=== PATIENT | female | born 1975 | race Caucasian/White ===

== ENCOUNTER 2016-05-22 06:04 | Day surgery (SDC) | payer BC ==
[2016-05-19 15:09] LABS: BASOPHILS 0.3 % (0.0-2.0); EOSINOPHILS 1.7 % (0-7); HEMATOCRIT 40.5 % (36.0-48.0); HEMOGLOBIN 13.7 g/dL (12-16); IMMATURE GRANULOCYTES 0.1 % (0-5); LYMPHOCYTES 29.8 % (15-50); MCH 31.1 pg (26.0-34.0); MCHC 33.8 g/dL (31.0-37.0); MEAN PLATELET VOLUME 10.1 fL (7.4-10.4); NEUTROPHILS 62.1 % (40-80); PLATELET COUNT 216 10x3/uL (130-400); RDW 12.2 % (11.5-14.5); WBC 7.7 10x3/uL (4.8-10.8)
[~2016-05-22] VITALS: Ht 165.1 cm; Wt 79.4 kg
[~2016-05-22 06:04] MED LIST: ZOLOFT100 MG PO
[2016-05-22 06:50] VITALS: BP 105/75; Ht 165.1 cm; Wt 79.4 kg
[2016-05-22 07:12] LABS: HCG URINE NEGATIVE (NEGATIVE)
--- NOTE | 2016-05-26 07:53 | OP ---
PATIENT NAME: MAME US MEDICAL RECORD: [id number] :77 LOCATION:D.OPS ADMISSION DATE: SURGEON: KEYSHA CHOW MD DATE OF OPERATION: 05/22/2016 PREOPERATIVE DIAGNOSES: 1. Abnormal uterine bleeding, menorrhagia. 2. History of prior NovaSure endometrial ablation. POSTOPERATIVE DIAGNOSES: 1. Abnormal uterine bleeding, menorrhagia. 2. History of prior NovaSure endometrial ablation. 3. Internal cervical os stenosis. SURGEON: Keysha Chow MD ANESTHESIA: Laryngeal mask anesthesia with Roshan Quinn CRNA. PROCEDURE: Hysteroscopy with dilation and curettage. FINDINGS: Stenosis of the internal cervical os noted, relieved with gentle serial dilatation. 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 Tubal ostia were not visualized due to the severe adhesions. Good uterine descensus was noted. A large cervical ectropion noted as well. DESCRIPTION OF PROCEDURE: After informed consent was given, the patient was taken to the operating room where laryngeal mask anesthesia was placed and found to be adequate. She was placed in a dorsal lithotomy position in [facility]. She was prepped and draped sterilely including a vaginal prep. A catheter was placed into the bladder and bladder drained with approximately 80 cc of clear urine return. A bivalve speculum was then placed into the vagina and her cervix visualized and grasped anteriorly with a single-tooth tenaculum. The attempt was then made to sound the cervix. A sound could not be placed due to stenosis of the internal cervical os. Therefore, we gently used a very tiny uterine sound, and progressively and serially dilated the cervix until reaching the desired dilatation of 10 mm. Once this was accomplished, the uterus was able to be sounded across and was sounded to 8.5 cm. The hysteroscope was then prepared and placed into the endometrial cavity with findings as listed above. Some targeted biopsies were taken of the tissue and the hysteroscope was removed. A sharp and suction curettage was then employed until a gritty texture was noted circumferentially. All specimens sent to the pathologist for further evaluation. At completion of the procedure, the single-tooth tenaculum was removed with silver nitrate used at the tenaculum sites with excellent hemostasis noted. The bivalve speculum was removed. The patient was returned to a supine position, awakened and taken into the recovery room in stable condition. The patient tolerated the procedure well. Sponge, lap and instrument counts were reported correct times 2. ESTIMATED BLOOD LOSS: Less than 50 cc. INTRAVENOUS FLUIDS: 900 cc of crystalloid. URINE OUTPUT: 80 cc. OPERATIVE REPORT [id number] MAME US SPECIMENS: 1. Biopsy of endometrium. 2. Sharp and suction endometrial curettings. COMPLICATIONS: None. TRANSINT:[id number] Voice Confirmation ID: [id number] DOCUMENT ID: [id number] KEYSHA CHOW MD at 0753 CC: [id number] DICTATION DATE: 05/22/16 1342 CONVEYOR TECHNICIAN: 05/22/16 1415 [facility] 05/22/[address] [address]
== END 2016-05-22 12:15 | disposition home or self-care (01) ==
LOC: D.OPS 06:04 → D.PAN 08:30 → D.OPS 12:15
PROVIDERS: Specialist
DX: N93.9 Abnormal uterine and vaginal bleeding, unspecified (principal); R93.5 Abnormal findings on diagnostic imaging of other abdominal regions, including retroperitoneum

== ENCOUNTER 2016-07-03 05:56 | Day surgery (SDC) | payer BC ==
[2016-06-29 15:29] LABS: BASOPHILS 0.6 % (0.0-2.0); EOSINOPHILS 3.3 % (0-7); HEMATOCRIT 38.1 % (36.0-48.0); HEMOGLOBIN 12.8 g/dL (12-16); IMMATURE GRANULOCYTES 0.1 % (0-5); LYMPHOCYTES 35.6 % (15-50); MCHC 33.6 g/dL (31.0-37.0); MCV 92.3 fL (80.0-100.0); MEAN PLATELET VOLUME 10.1 fL (7.4-10.4); NEUTROPHILS 54.4 % (40-80); PLATELET COUNT 215 10x3/uL (130-400); RBC 4.13 10x6/uL (4.00-5.40); RDW 12.5 % (11.5-14.5); WBC 8.5 10x3/uL (4.8-10.8)
[2016-06-29 15:43] LABS: CALC OSMOLALITY 282 mosm/kg (275-300); CALCIUM 9.2 mg/dL (8.5-10.1); CARBON DIOXIDE 28.1 mmol/L (21.0-32.0); CHLORIDE - SERUM 104 mmol/L (98-107); CREATININE - SERUM 0.6 mg/dL (0.6-1.3); GLUCOSE 109 mg/dL (74-106); POTASSIUM - SERUM 3.9 mmol/L (3.5-5.1); SODIUM 142 mmol/L (136-145); UREA NITROGEN 11 mg/dL (7-18); eGFR NON AFRICAN AMERICAN > 90 mL/min (90-120)
[~2016-07-03] VITALS: Ht 165.1 cm; Wt 77.3 kg
[2016-07-03] VITALS (13 sets, daily range): BP systolic 103–133; BP diastolic 65–77; Ht 165.1 cm; Wt 77.3 kg
--- NOTE | 2016-07-03 06:24 | NUR ---
0620 PT STATES NO CHANGES IN HEALTH HISTORY ASSESSMENT SINCE INTERVIEWED ON 06/29/16. Heath WHITE R.N.
[2016-07-03 07:27] LABS: HCG URINE NEGATIVE (NEGATIVE)
--- NOTE | 2016-07-03 12:02 | NUR ---
REMAINS IN BED WITH 2 SIDERAILS UP . PERIODICLY NAPPING. FAMILY AT BEDSIDE.
--- NOTE | 2016-07-03 14:10 | NUR ---
pt awake and sitting up in the bed, with her mother at bedside. pt requests hot tea, provided for her mother to assist her with, lemon saxman soda also reqeusted and served. sr up x 2, call light and phone within reach. corrections counselor button within reach. pt denies other needs at this time. pt requests for O2 to be discontinued. O2 sat noted to be 97% on 2Lnc. o2 removed, will continue to monitor o2 sats.
--- NOTE | 2016-07-03 15:13 | NUR ---
FAMILY REMAINS AT BEDSIDE. PT STATES SHE ONLY HITS PAIN PUMP WHEN NEEDED. INCENTIVE SPIROMETER AND ICE PACK TO ABD. NO VAG BLEEDING NOTED. PACKING INPLACE. MACKEY PATENT TO CLOSED. DRAINAGE SYSTEM.
--- NOTE | 2016-07-03 17:27 | NUR ---
PT COMPLAINING OF MILD NAUSEA. NEW ORDER RECEIVED.
--- NOTE | 2016-07-03 17:45 | NUR ---
C/O SWELLING TO HANDS. IV LR TO KEEP OPEN FOR JEWEL GRINDER. NAUSEA IMPROVED.
--- NOTE | 2016-07-03 17:59 | NUR ---
DEMONSTRATED INCENTIVE SPIROMETER. PT REPEATED INSTRUCTIONS. CLEAR FLUIDS AT BEDSIDE. PT HUNGRY NOW THAT NAUSEA HAS SUBSIDED.
--- NOTE | 2016-07-03 19:25 | NUR ---
PATIENT TRANSFERRED BY BED TO ROOM 1214 FROM . AWAKE AND ALERT. INTRODUCED SELF. V/S TAKEN. ASSESSMENT DONE. STATUS POST LAVH TODAY. 3 ABD LAP INCISIONS WITH BAND-AIDS. NO BLEEDING NOTED. MACKEY CATH TO DRAINAGE BAG. IVF--LR TO R HAND. IV SITE OK. ON DEMEROL ELECTRONIC INDUSTRIAL CONTROLS MECHANIC FOR PAIN MANAGEMENT. REFILLED ICE PACK TO ABD. SCD's TO BOTH LOWER EXTREMITIES TO PREVENT DVT. ORIENTED TO ROOM AND BED CONTROLS.
--- NOTE | 2016-07-03 20:10 | NUR ---
TURNED OFF LIGHTS IN THE ROOM PER PT's REQUEST.
--- NOTE | 2016-07-03 23:44 | NUR ---
V/S RECHECKED. O2 SAT 88% ON ROOM AIR. STARTED ON O2 @ 2L/NC. O2 SAT UP TO 95%
--- NOTE | 2016-07-04 01:19 | NUR ---
DEMEROL DISPATCHER REFINERY SYRINGE CHANGED.
--- NOTE | 2016-07-04 03:20 | NUR ---
EYES CLOSED. LEFT UNDISTURBED.
--- NOTE | 2016-07-04 06:16 | NUR ---
FLOOR AND WALL APPLIER LIQUID HERE TO DRAW AM LAB. SLEPT FAIRLY WELL DURING THE NIGHT. CONTINUING PLAN OF CARE. ANTICIPATES DISCHARGE TODAY.
[2016-07-04 06:38] LABS: BASOPHILS 0.1 % (0.0-2.0); EOSINOPHILS 0.5 % (0-7); HEMATOCRIT 33.4 % (36.0-48.0); IMMATURE GRANULOCYTES 0.3 % (0-5); LYMPHOCYTES 11.3 % (15-50); MCH 30.1 pg (26.0-34.0); MCHC 32.9 g/dL (31.0-37.0); MCV 91.5 fL (80.0-100.0); MONOCYTES 7.3 % (2-11); NEUTROPHILS 80.5 % (40-80); RBC 3.65 10x6/uL (4.00-5.40); RDW 12.1 % (11.5-14.5); WBC 11.4 10x3/uL (4.8-10.8)
[2016-07-04 06:44] LABS: PLATELET COUNT 159 10x3/uL (130-400)
[2016-07-04 06:57] LABS: CALC OSMOLALITY 272 mosm/kg (275-300); CALCIUM 7.8 mg/dL (8.5-10.1); CARBON DIOXIDE 29.3 mmol/L (21.0-32.0); CHLORIDE - SERUM 102 mmol/L (98-107); CREATININE - SERUM 0.6 mg/dL (0.6-1.3); GLUCOSE 94 mg/dL (74-106); POTASSIUM - SERUM 3.6 mmol/L (3.5-5.1); SODIUM 137 mmol/L (136-145); UREA NITROGEN 9 mg/dL (7-18); eGFR NON AFRICAN AMERICAN > 90 mL/min (90-120)
[2016-07-04 07:15] VITALS: BP 91/60
--- NOTE | 2016-07-04 07:15 | NUR ---
PT IS RECEIVED LYING IN BED. SHE IS S/P VAG HYST. SHE OFFERS NO COMPLAINTS THIS AM. HER MOTHER IS AT BEDSIDE. SHE STATES THAT SHE WOULD LIKE ANOTHER ICE PACK. SEEMS TO HELP HER. IV IS PATENT R HAND. SHE HAS LR INFUSING AT 50 CC/HR AND A DEMEROL JOINT FINISHER 10 MG Q 10. SHE HAS MACKEY INTACT WITH LYNNETTE COLORED URINE. SCD'S INTACT. GEN- AWAKE AND ALERT. LUNGS- CLEAR. HEART- RRR. ABD- SOFT WITH TENDERNESS. 2 LAP INCISIONS COVER WITH BANDAIDS. BED IS LOW, SIDE RAILS UP X 2 AND CALL LIGHT IN REACH.
[2016-07-04] MEDS ORDERED: IBUPROFEN600 MG PO (07:34)
[2016-07-04] MEDS ORDERED: PERCOCET 5-3251 TAB PO (07:35)
--- NOTE | 2016-07-04 08:44 | NUR ---
PT IS LYING IN BED RESTING. IV WAS SALINE LOCKED. MACKEY WAS REMOVED. 300 CC LYNNETTE COLORED URINE. PT OFFERS NO COMPLAINTS. ENCOURAGED INCENTIVE ESTELA. INSTRUCTED PT TO CALL ME WHEN SHE IS READY TO GET UP.
--- NOTE | 2016-07-04 08:53 | NUR ---
PT C/O PAIN IN NECK BEING A 7. SHE HAD NO PAIN MED ORDERED. I CALLED AUDREY CORNELIUS WITH DR BUTTS AND SHE ORDERED HYDROCODONE/ACET 10/325 FOR PT SINCE THIS IS WHAT PT STATES THAT SHE TAKES AT HOME FOR HER NECK PAIN.
--- NOTE | 2016-07-04 09:20 | NUR ---
PT ASSISTED UP TO BATHROOM. TOLERATED WELL. SHE WAS UNABLE TO VOID. C/O OF A LITTLE DIZZINESS WHEN GETTING BACK IN BED.
--- NOTE | 2016-07-04 09:53 | NUR ---
This RN assisting with care. Pt was medicated for pain -see emar. Jimenez ordoñezs provide and encouraged. Pt denies needs at this time.
--- NOTE | 2016-07-04 10:29 | NUR ---
PT IS RESTING IN BED. STATES HER PAIN IS ABOUT A 4 NOW. SHE OFFERS NO COMPLAINTS. BED IS LOW, CALL LIGHT IN REACH AND SIDE RAILS UP X 2.
--- NOTE | 2016-07-04 11:43 | NUR ---
PT IS RESTING IN BED. SHE STATES HER PAIN IS OK NOW.
--- NOTE | 2016-07-04 12:45 | NUR ---
PT IS UP TO TAKE A SHOWER. TOLERATED VERY WELL. MOTHER AT BEDSIDE. LINENS CHANGED. PT DRESSED IN HER CLOTHES AND NOW IS AMBULATING IN HALLWAY.
--- NOTE | 2016-07-04 13:45 | NUR ---
SALINE LOCK D'CD R HAND. TIP INTACT. BANDAID APPLIED.
--- NOTE | 2016-07-04 14:19 | NUR ---
PTS DISCHARGE INSTRUCTIONS WERE DISCUSSED WITH HER AND HANDOUTS GIVEN. PRESCRIPTIONS GIVEN ALSO. PT WAS TAKEN TO THE FRONT DOOR BY WHEELCHAIR. HER MOM IS DRIVING HER HOME.
--- NOTE | 2016-07-07 19:19 | OP ---
PATIENT NAME: MAME US MEDICAL RECORD: [id number] :77 LOCATION:D.OPS ADMISSION DATE: SURGEON: NAIMA CHOW MD DATE OF OPERATION: 07/03/2016 PREOPERATIVE DIAGNOSES: 1. Abnormal uterine bleeding, menorrhagia, and dysmenorrhea. 2. Failed endometrial ablation. POSTOPERATIVE DIAGNOSES: 1. Abnormal uterine bleeding, menorrhagia, and dysmenorrhea. 2. Failed endometrial ablation. SURGEON: Naima Chow MD SECURITIES ADVISER SURGEON: Christophe Castillo MD (JJ) ANESTHESIA: General endotracheal anesthesia with Suzan Haskins CRNA. PROCEDURES: 1. Laparoscopic assisted vaginal hysterectomy with ovarian preservation. 2. Bilateral distal salpingectomy. FINDINGS: Due to current lap band in place, prior history of cholecystectomy, and keloid scar formation, Dr. Castillo aided at start of the case. Fortunately, very little adhesive disease was noted. Normal appearing uterus, ovaries, and fallopian tubes bilaterally. DESCRIPTION OF THE PROCEDURE: After informed consent was given, the patient was taken to the operating room where general endotracheal anesthesia was placed and found to be adequate. She was placed in a dorsal lithotomy position in [facility]. She was prepped and draped sterilely including a vaginal prep. A Melo catheter was placed in the bladder and bladder was drained with approximately 20 cc of clear urine return. A bivalve speculum was then placed in the vagina, the cervix visualized and grasped anteriorly with a single-tooth tenaculum. A Pelosi uterine manipulator was then placed with ease and the bivalve speculum removed. The patient was placed into a ski position, gloves were changed, and infraumbilical incision was then made by Dr. Castillo and a 5-mm Optiview port was placed under direct visualization. The abdomen was insufflated with approximately 2 liters of CO2 gas. Please see his dictation for details, but very little adhesive disease was noted and the lap band was also able to be visualized. The patient was placed into Trendelenburg, 2 additional 5-mm ports were placed in the right and left lower quadrant under direct visualization. Dr. Castillo then exited the procedure and we continued, the right round ligament was grasped with an atraumatic grasper, held gently on traction, the right round ligament was then cauterized with the Gyrus and transected with the Harmonic scalpel. We then opened the anterior leaf of the broad ligament, heading laterally to medially creating a bladder flap. The ovary on the right side was then gently lifted. The right ureter was identified and noted to be peristalsing normally. The right fallopian tube and right ovarian ligament were then cauterized with the Gyrus and transected with the Harmonic scalpel. We then continued cauterizing and transecting the parametrial tissue until reaching the region of the uterine vessels, The uterine vessels were then cauterized with the Gyrus and transected with the Harmonic scalpel. Excellent hemostasis was noted. Attention was then turned to the opposite side. OPERATIVE REPORT [id number] MAME US The left round ligament was grasped with an atraumatic grasper and held on traction as the Gyrus was used to cauterize and the Harmonic scalpel to transect the left round ligament. The anterior leaf of the broad ligament was then opened and met in the middle heading laterally to medially, opening this and creating a bladder flap. Excellent hemostasis was again noted. The left ovary was lifted, the left ureter was identified and noted to be peristalsing normally. The left fallopian tube and left utero-ovarian ligaments were then cauterized with the Gyrus and transected with the Harmonic scalpel. Hemostasis was assured, we then continued cauterizing and transecting the parametrial tissue until reaching the region of the uterine vessels. The uterine vessels on the left side then were cauterized and transected as well. A dusky appearance to the uterus was noted. All pedicles were again observed and noted to be hemostatic. We then held the left fallopian tube on traction, and cauterized and transected the mesosalpinx to excise the left fallopian tube and fimbria and repeated this on the right. The fallopian tubes were then placed into the cul-de-sac for removal once we began the vaginal portion of the procedure, all instruments were removed. The abdomen was desufflated and the patient was flattened. We then placed the patient into a steep lithotomy position. The Pelosi uterine manipulator was removed. A weighted speculum was placed into the vagina posteriorly, a Luz Elena anteriorly and lateral sidewall retractors were utilized as well. The single-tooth tenaculum was removed and replaced with a thyroid tenacula anteriorly and another one was placed posteriorly. We then held the cervix gently on traction as an incision was made circumferentially of the vaginal mucosa with the Bovie cautery. The posterior aspect of the vaginal mucosa was grasped and the posterior cul-de-sac was entered with the Iverson scissors. The fallopian tubes were removed from the cul-de-sac and passed off the field as specimen. The long weighted speculum was placed into the posterior cul-de-sac. The right and left uterosacral ligaments were then clamped with curved Nicolasa clamps, transected with Iverson scissors, and suture ligated with 0 Vicryl stick ties. These were held on hemostats. We then opened the anterior cul-de-sac and the Luz Elena was placed through this to retract the bladder and protect it. We then continued clamping, transecting and suture ligating the cardinal ligaments in 2 additional pedicles on either side with clamping with Nicolasa clamp, transecting with Iverson scissors, and suture ligating with 0 Vicryl stick ties. The uterus and cervix were then removed and passed off the field as specimen. All of the pedicles were observed and noted to be hemostatic. The long weighted speculum was removed and replaced with the short weighted speculum. The anterior and posterior aspects of the peritoneum were then grasped with Allis clamps and the peritoneum was closed in a pursestring fashion including the uterosacral ligaments in the closure. The uterosacral ligaments were then tied in the midline to aid in vault suspension and the vaginal cuff was then closed with 0 Vicryl in a running locked fashion. Excellent hemostasis was noted. The vagina was irrigated and noted to be hemostatic. The vagina was then packed with a Premarin-soaked Kerlix sponge. Clear urine was noted at completion of this portion of the procedure. The patient was again placed into a ski position, gloves were once again changed. The abdomen was reinsufflated and the patient was placed into a Trendelenburg. The ureters were again identified and were noted to be peristalsing normally bilaterally. The pelvis was irrigated profusely and noted to be hemostatic. Scooby dust was sprayed onto the cuff and peritoneum to aid additionally in hemostasis. The abdomen was desufflated. The right and left lower quadrant ports were removed under direct visualization. Hemostasis was assured and finally the umbilical port was removed. All 3 ports were closed with 3-0 Monocryl in a subcuticular fashion with Dermabond, Steri-Strips, and Band-Aids applied atop. The patient was returned to a supine position, awakened and taken into the recovery room in stable condition. The OPERATIVE REPORT [id number] MAME US patient tolerated procedure well. Sponge, lap, needle and instrument counts reported correct times 2. SPECIMENS: Include: 1. Uterus and cervix. 2. Right and left distal fallopian tube/fimbria. ESTIMATED BLOOD LOSS: Less than 100 cc. INTRAVENOUS FLUIDS: 2300 cc of crystalloid. URINE OUTPUT: 200 cc. COMPLICATIONS: None. TRANSINT:[id number] Voice Confirmation ID: [id number] DOCUMENT ID: [id number] NAIMA CHOW MD at 2009 CC: [id number] DICTATION DATE: 07/03/16 1122 COMPUTATIONAL THEORY SCIENTIST: 07/03/16 1809 [facility] 07/04/16 [id number] [place] [address]
== END 2016-07-04 15:06 | disposition home or self-care (01) ==
LOC: D.OPS 05:56 → D.PAN 07:30 → D.OPS 07:30 → D.LD 10:16 → D.WS 19:47 → D.OPS 07-04 15:06
PROVIDERS: Specialist
DX: N93.8 Other specified abnormal uterine and vaginal bleeding (principal); N92.0 Excessive and frequent menstruation with regular cycle; N94.6 Dysmenorrhea, unspecified; Z98.84 Bariatric surgery status; Z79.899 Other long term (current) drug therapy